=== PATIENT | female | born 1945 | race Caucasian/White ===

== ENCOUNTER → 2018-01-01 | Outpatient (CLI) | payer OTHER ==
[~2018-01-01] MED LIST: ASPI81 PO; ASPI81TA82 PO; ENAL5TAB98 PO; HYDR50TA5 PO; IBUP-238 PO; KLOR20TA6 PO; LEVA750T9 PO; OMEGA 3 PO; OXYC5 PO; SIMV10TA PO; TAB-TAB PO; TOLT1TAB17 PO; VESI5TAB PO; VITA100017 PO; ZIAC106.25 PO; ZYRT10TA12 PO; [UNRECOGNIZED DRUG - OTHER]
--- NOTE | 2018-01-01 22:38 | EKG ---
Date Performed: 01/01/2018 Time Performed: 09:34:58 PTAGE: 72 years EKG: Sinus rhythm . Right axis deviation Septal and lateral ST-T changes are nonspecific Abnormal ECG Since the PREVIOUS TRACING , no significant change noted DOCTOR: Pawel Lima Interpretating Date/Time 01/01/2018 22:37:28
== END ==
LOC: HCAV 09:21
PROVIDERS: ATTEND Urology
DX: Z01.810 Encounter for preprocedural cardiovascular examination (principal)
CPT/HCPCS: 93005

== ENCOUNTER 2018-02-26 10:09 | Observation (INO) ==
[2018-02-26] MEDS: Sod Chloride 0.9% Inj 1,000 ML IV.CONT SCH (11:15)
[2018-02-26 11:31] LABS: Baso % (Auto) 0.5 % (0.0-2.0); Eos # (Auto) 0.3 th/mm3 (0.0-0.4); Eos % (Auto) 3.9 % (0.0-4.0); Hemoglobin 14.1 gm/dL (11.6-15.3); Lymph # (Auto) 1.2 th/mm3 (1.0-4.8); Lymph % (Auto) 17.7 % (9.0-44.0); Mean Corpuscular HGB Conc 33.5 % (32.0-36.0); Mean Corpuscular Hemoglobin 30.7 pg (27.0-34.0); Mean Corpuscular Volume 91.5 fL (80.0-100.0); Mean Platelet Volume 8.2 fL (7.0-11.0); Mono # (Auto) 0.5 th/mm3 (0.0-0.9); Mono % (Auto) 6.4 % (0.0-8.0); Neut % (Auto) 71.5 % (16.0-70.0); Platelet Count 162 th/mm3 (150-450); Red Blood Count 4.59 mil/mm3 (4.00-5.30); Red Cell Distribution Width 14.5 % (11.6-17.2)
[2018-02-26 11:43] LABS: Alanine Aminotransferase 35 U/L (10-53); Albumin 3.9 g/dL (3.4-5.0); Anion Gap 9 meq/L (5-15); Aspartate Aminotransferase 26 U/L (15-37); Blood Urea Nitrogen 25 mg/dL (7-18); Calcium 9.8 mg/dL (8.5-10.1); Carbon Dioxide 27.9 meq/L (21.0-32.0); Chloride 103 meq/L (98-107); Glomerular Filtration Rate 61 mL/min (>89); Glucose,Random 103 mg/dL (74-106); Potassium 3.6 meq/L (3.5-5.1); Sodium 140 meq/L (136-145)
[2018-02-26 11:46] LABS: Alkaline Phosphatase 74 U/L (45-117); Total Protein 7.9 g/dL (6.4-8.2)
[2018-02-26 11:51] LABS: Activated Partial Thrombo Time 26.7 sec (24.3-30.1); INR 1.1 Ratio; Prothrombin Time 11.2 sec (9.8-11.6)
--- NOTE | 2018-02-26 12:11 | ED ---
HPI General Chief complaint: GI Bleed Stated complaint: Poss Blood in stool Time Seen by Provider: 02/26/18 11:04 History of Present Illness HPI Narrative: This is a 73-year-old female with no significant past medical history, presents today with complaints of blood in her stool 2 days. Patient reports that it started as a pink frothy stool 2 days ago. She states over the last 48 hours it has progressed to a black tarry consistency. She denies any history of previous GI bleeds. She denies any history of fevers or chills. She does report that she does take ibuprofen occasionally for back pain but does not take any other blood thinners. She reports abdominal pain in her lower abdominal area. She denies any other history. MD complaint: melena Onset (ago): day(s) Pain Consistency: colicky Severity: moderate Relieving factors: none Exacerbating factors: bowel movement Treatments Prior to Arrival: none Related Data Home Medications Medication Instructions Recorded Confirmed alendronate 70 mg PO QWEEK 02/26/18 02/26/18 amlodipine 5 mg PO DAILY 02/26/18 02/26/18 ascorbic acid (vitamin C) [Vitamin 60 mg PO DAILY 02/26/18 02/26/18 C] aspirin 81 mg PO DAILY 02/26/18 02/26/18 atorvastatin 20 mg PO DAILY 02/26/18 02/26/18 cholecalciferol (vitamin D3) 5,000 unit PO DAILY 02/26/18 02/26/18 [Vitamin D3] losartan-hydrochlorothiazide 1 tab PO DAILY 02/26/18 02/26/18 potassium chloride 20 meq PO DAILY 02/26/18 02/26/18 Allergies Allergy/AdvReac Type Severity Reaction Status Date / Time acetaminophen Allergy Severe NAUSEA Verified 02/26/18 10:28 VOMITING Review of Systems ROS: all other systems reviewed are negative Constitutional Denies chills and Denies fever(s) Eyes Reports system reviewed and no additional complaints, except as docu ENT Reports system reviewed and no additional complaints, except as docu Cardiovascular Denies chest pain and Denies palpitations Respiratory Denies hemoptysis and Denies dyspnea Gastrointestinal Reports melena, Denies hematemesis and Reports other (Greater than 20 bowel movements in the last 48 hours) Genitourinary Denies urinary frequency and Denies dysuria Musculoskeletal Reports back pain (Chronic) Integumentary/Breasts Reports system reviewed and no additional complaints, except as docu Neurologic Denies system reviewed and no additional complaints, except as docu Hematologic/Lymphatic Denies easy bleeding and Denies easy bruising PMF Medical History Medical History Hypercholesterolemia (Acute) Hypertension (Acute) Surgical History Surgical History History of appendectomy (Acute) Family History Family History Mother Family history of cancer Social History Social History Substance History: No History of Abuse Smoking Status: Never smoker How Often Do You Have a Drink Containing Alcohol: 2 to 4 times a month Recent Travel in [facility] within the Last 8 Weeks: No Recent Out of Country Travel within the Last 8 Weeks: No Immunization History Tetanus Immunization: Unsure Hx Influenza Vaccine This Season: Yes Exam Narrative Exam Narrative: GENERAL: Well-developed well-nourished female in no acute respiratory distress. SKIN: Focused skin assessment warm/dry. HEAD: Atraumatic. Normocephalic. EYES: No scleral icterus. No injection or drainage. ENT: No nasal bleeding or discharge. Mucous membranes pink and moist. NECK: Trachea midline. Supple. CARDIOVASCULAR: Regular rate and rhythm. No murmur appreciated. RESPIRATORY: No accessory muscle use. Clear to auscultation. Breath sounds equal bilaterally. GASTROINTESTINAL: Abdomen soft, non-tender, nondistended. Hepatic and splenic margins not palpable. MUSCULOSKELETAL: No obvious deformities. No clubbing. No cyanosis. No edema. RECTAL EXAM: Performed by first year buyer intern Dr. Escobar. No masses or tenderness , stool is maroon. Heme positive. NEUROLOGICAL: Awake and alert. No obvious cranial nerve deficits. Motor grossly within normal limits. Normal speech. Course Initial Documented Vital Signs Temperature 98.2 F 02/26/18 10:13 Pulse Rate 85 02/26/18 10:13 Respiratory Rate 16 02/26/18 10:13 Blood Pressure 121/64 02/26/18 10:13 Pulse Oximetry 96 02/26/18 10:13 Last Documented Vital Signs Temperature 97.7 F 02/26/18 13:00 Pulse Rate 65 02/26/18 13:00 Respiratory Rate 17 02/26/18 13:00 Blood Pressure 98/61 L 02/26/18 13:00 Pulse Oximetry 99 02/26/18 13:00 Medical Decision Making MDM Narrative Medical decision making narrative: This is a 73-year-old female presents today with complaints of gastrointestinal bleeding 2 days. Patient states it started out as a frothy pink coloration. They state over the last 48 hours it has become black and tarry. On exam here it was maroon colored and heme positive. Patient's H&H is stable at this time. She will be admitted under observation with a GI consult. [facility] who is agreed [facility] the observation admission. Medical Screen Exam Complete: Yes Emergency Medical Condition: Yes Differential Diagnosis Differential Diagnosis: Upper GI bleed versus lower GI bleed versus colitis Lab Data Result diagrams: 02/26/18 11:14 02/26/18 11:14 Lab Results 02/26/18 02/26/18 02/26/18 Range/Units 11:14 11:14 11:14 WBC 7.0 (4.0-11.0) th/mm3 RBC 4.59 (4.00-5.30) mil/mm3 Hgb 14.1 (11.6-15.3) gm/dL Hct 42.0 (35.0-46.0) % MCV 91.5 (80.0-100.0) fL MCH 30.7 (27.0-34.0) pg MCHC 33.5 (32.0-36.0) % RDW 14.5 (11.6-17.2) % Plt Count 162 (150-450) th/mm3 MPV 8.2 (7.0-11.0) fL Neut % (Auto) 71.5 H (16.0-70.0) % Lymph % (Auto) 17.7 (9.0-44.0) % [place] % (Auto) 6.4 (0.0-8.0) % Eos % (Auto) 3.9 (0.0-4.0) % Baso % (Auto) 0.5 (0.0-2.0) % Neut # (Auto) 5.0 (1.8-7.7) th/mm3 Lymph # (Auto) 1.2 (1.0-4.8) th/mm3 [place] # (Auto) 0.5 (0.0-0.9) th/mm3 Eos # (Auto) 0.3 (0.0-0.4) th/mm3 Baso # (Auto) 0.0 (0.0-0.2) th/mm3 WBC Differential . Differential Comment Auto diff final PT 11.2 (9.8-11.6) sec INR 1.1 Ratio APTT 26.7 (24.3-30.1) sec Sodium 140 (136-145) meq/L Potassium 3.6 (3.5-5.1) meq/L Chloride 103 (98-107) meq/L Carbon Dioxide 27.9 (21.0-32.0) meq/L Anion Gap 9 (5-15) meq/L BUN 25 H (7-18) mg/dL Creatinine 0.90 (0.50-1.00) mg/dL Estimated GFR 61 L (>89) mL/min Random Glucose 103 (74-106) mg/dL Calcium 9.8 (8.5-10.1) mg/dL Total Bilirubin 1.0 (0.2-1.0) mg/dL AST 26 (15-37) U/L ALT 35 (10-53) U/L Alkaline Phosphatase 74 (45-117) U/L Total Protein 7.9 (6.4-8.2) g/dL Albumin 3.9 (3.4-5.0) g/dL Blood Type Blood Type Recheck Antibody Screen 02/26/18 Range/Units 11:14 WBC (4.0-11.0) th/mm3 RBC (4.00-5.30) mil/mm3 Hgb (11.6-15.3) gm/dL Hct (35.0-46.0) % MCV (80.0-100.0) fL MCH (27.0-34.0) pg MCHC (32.0-36.0) % RDW (11.6-17.2) % Plt Count (150-450) th/mm3 MPV (7.0-11.0) fL Neut % (Auto) (16.0-70.0) % Lymph % (Auto) (9.0-44.0) % [place] % (Auto) (0.0-8.0) % Eos % (Auto) (0.0-4.0) % Baso % (Auto) (0.0-2.0) % Neut # (Auto) (1.8-7.7) th/mm3 Lymph # (Auto) (1.0-4.8) th/mm3 [place] # (Auto) (0.0-0.9) th/mm3 Eos # (Auto) (0.0-0.4) th/mm3 Baso # (Auto) (0.0-0.2) th/mm3 WBC Differential Differential Comment PT (9.8-11.6) sec INR Ratio APTT (24.3-30.1) sec Sodium (136-145) meq/L Potassium (3.5-5.1) meq/L Chloride (98-107) meq/L Carbon Dioxide (21.0-32.0) meq/L Anion Gap (5-15) meq/L BUN (7-18) mg/dL Creatinine (0.50-1.00) mg/dL Estimated GFR (>89) mL/min Random Glucose (74-106) mg/dL Calcium (8.5-10.1) mg/dL Total Bilirubin (0.2-1.0) mg/dL AST (15-37) U/L ALT (10-53) U/L Alkaline Phosphatase (45-117) U/L Total Protein (6.4-8.2) g/dL Albumin (3.4-5.0) g/dL Blood Type O Positive Blood Type Recheck Not needed Antibody Screen Negative Discharge Plan Discharge Disposition Patient Disposition: 30 Still Patient Discharge Details Diagnosis: GI bleed Physicians Team ED Provider: Hema Chandler Primary Care Provider: UNKNOWN, Attending Provider: Emilia Vogel Other Providers: Melchor Echevarria Rxs /Orders / Referrals /Forms Prescriptions: No Action potassium chloride 10 mEq Capsule, Extended Release 20 meq PO DAILY RF: 0 atorvastatin 20 mg Tablet 20 mg PO DAILY RF: 0 ascorbic acid (vitamin C) [Vitamin C] 60 mg Lozenge 60 mg PO DAILY RF: 0 alendronate 70 mg Tablet 70 mg PO QWEEK RF: 0 amlodipine 5 mg Tablet 5 mg PO DAILY RF: 0 losartan-hydrochlorothiazide 100-25 mg Tablet 1 tab PO DAILY RF: 0 aspirin 81 mg Tablet,Chewable 81 mg PO DAILY RF: 0 cholecalciferol (vitamin D3) [Vitamin D3] 5,000 unit Tablet 5,000 unit PO DAILY RF: 0 Discharge Interventions Interventions: Vital Signs Last Done: 02/26/18 12:20 Status ED Status: With Doctor
--- NOTE | 2018-02-26 12:44 | P.HPIM ---
History of Present Illness Primary Care Physician: Ken Tovar Chief Complaint: rectal bleed History of Present Illness: patient is a 73 y/o female with history of hypertension and dyslipidemia, borderline diabetes, who presented to ER with rectal bleed. she says that she was at her usual state of health till yesterday when she started to have rectal bleed. she says that initially it was ' pinkish stool' however last night it ' turned black'. she reports mild lower abdominal pain last night which has resolved. she had some nausea as well. she doesn't report any fever but she was feeling cold. she denies any recent antibiotic use but she says that at times she takes advil for her back pain. she says that the last colonoscopy that she had was two-three years ago during which she had polypectomy. Review of Systems All other systems reviewed negative except as stated in HPI PMFSH - History History Provided By: Patient, Family Member - Medical History Medical History: Medical History (Last Updated 02/26/18 @ 10:28 by Samina Pruett) Hypercholesterolemia Hypertension - Surgical History Surgical History: Surgical History (Last Updated 02/26/18 @ 10:29 by Samina Pruett) History of appendectomy - Family History Family History: Family History (Last Updated 02/26/18 @ 12:41 by Emilia Vogel MD) Mother Family history of cancer - Tobacco History Smoking Status: Never smoker - Alcohol History How Often Do You Have a Drink Containing Alcohol: 2 to 4 times a month - Substance Use History Substance History: No History of Abuse - Travel History Recent Travel in the [place] Within the Last 8 Weeks: No Recent Travel Out of the Country Within the Last 8 Weeks: No - Immunization History Tetanus Immunization: Unsure Hx Influenza Vaccine This Season: Yes Medications and Allergies Active Medications: Active Medications Sodium Chloride (Ns Inj) 1,000 mls @ 100 mls/hr IV.CONT .Q10H ABRIL Last Admin: 02/26/18 11:15 Dose: 125 mls/hr Sodium Chloride (Ns Flush) 2 ml IV.FLUSH PRN PRN PRN Reason: FLUSH AFTER USING IV ACCESS Allergies Allergy/AdvReac Type Severity Reaction Status Date / Time acetaminophen Allergy Severe NAUSEA Verified 02/26/18 10:28 VOMITING Home Medications Medication Instructions Recorded Confirmed Type alendronate 70 mg PO QWEEK 02/26/18 02/26/18 History amlodipine 5 mg PO DAILY 02/26/18 02/26/18 History ascorbic acid (vitamin C) [Vitamin 60 mg PO DAILY 02/26/18 02/26/18 History C] aspirin 81 mg PO DAILY 02/26/18 02/26/18 History atorvastatin 20 mg PO DAILY 02/26/18 02/26/18 History cholecalciferol (vitamin D3) 5,000 unit PO DAILY 02/26/18 02/26/18 History [Vitamin D3] losartan-hydrochlorothiazide 1 tab PO DAILY 02/26/18 02/26/18 History potassium chloride 20 meq PO DAILY 02/26/18 02/26/18 History Exam Vital signs: Vital Signs 02/26/18 10:13 02/26/18 11:04 02/26/18 11:39 Temperature 98.2 F Pulse Rate 85 69 Respiratory Rate 16 Blood Pressure 121/64 Pulse Oximetry 96 98 96 02/26/18 12:20 Temperature 97.8 F Pulse Rate 76 Respiratory Rate 18 Blood Pressure 90/61 L Pulse Oximetry 99 Intake & Output 02/25/18 02/26/18 02/26/18 18:59 06:59 18:59 Weight 59.874 kg - Constitutional no acute distress - Routine HEENT Exam Eye: Present: PERRL - Routine Respiratory Exam Present: CTA bilaterally - Routine Cardiovascular Exam Present: RRR - Routine Abdominal Exam Present: soft - Routine Extremities Exam Comments: no pedal edema. - Routine Neurological Exam Present: alert, oriented X3 Results - Labs CBC & Chem 7: 02/26/18 11:14 02/26/18 11:14 Labs: Short CBC 02/26/18 Range/Units 11:14 WBC 7.0 (4.0-11.0) th/mm3 Hgb 14.1 (11.6-15.3) gm/dL Hct 42.0 (35.0-46.0) % Plt Count 162 (150-450) th/mm3 BMP 02/26/18 11:14 Sodium 140 Potassium 3.6 Chloride 103 Carbon Dioxide 27.9 BUN 25 H Creatinine 0.90 Calcium 9.8 Liver Function 02/26/18 Range/Units 11:14 Total Bilirubin 1.0 (0.2-1.0) mg/dL AST 26 (15-37) U/L ALT 35 (10-53) U/L Alkaline Phosphatase 74 (45-117) U/L Albumin 3.9 (3.4-5.0) g/dL Caprini VTE Risk Assessment Caprini VTE Risk Assessment: Moderate/High Risk (score >= 2) VTE Pharmacological Exception Reason: Active bleeding Caprini Risk Assessment Model: Point Value = 1 Point Value = 2 Point Value = 3 Point Value = 5 Age 41-60 Minor surgery BMI > 25 kg/m2 Swollen legs Varicose veins or History of unexplained or recurrent spontaneous Oral contraceptives or hormone replacement Sepsis (< 1 month) Serious lung disease, including pneumonia (< 1 month) Abnormal pulmonary function Acute myocardial infarction Congestive heart failure (< 1 month) History of inflammatory bowel disease Medical patient at bed rest Age 61-74 Arthroscopic surgery Major open surgery (> 45 min) Laparoscopic surgery (> 45 min) Malignancy Confined to bed (> 72 hours) Immobilizing plaster cast Central venous access Age >= 75 History of VTE Family history of VTE Factor V Leiden Prothrombin [id number] Lupus anticoagulant Anticardiolipin antibodies Elevated serum homocysteine Heparin-induced thrombocytopenia Other congenital or acquired thrombophilia Stroke (< 1 month) Elective arthroplasty Hip, pelvis, or leg fracture Acute spinal cord injury (< 1 month) Prophylaxis Regimen: Total Risk Factor Score Risk Level Prophylaxis Regimen 0-1 Low Early ambulation 2 Moderate Order ONE of the following: *Sequential Compression Device (SCD) *Heparin 5000 units SQ BID 3-4 Higher Order ONE of the following medications: *Heparin 5000 units SQ TID *Enoxaparin/Lovenox 40 mg SQ daily (WT < 150 kg, CrCl > 30 mL/min) *Enoxaparin/Lovenox 30 mg SQ daily (WT < 150 kg, CrCl > 10-29 mL/min) *Enoxaparin/Lovenox 30 mg SQ BID (WT < 150 kg, CrCl > 30 mL/min) AND/OR *Sequential Compression Device (SCD) 5 or more Highest Order ONE of the following medications: *Heparin 5000 units SQ TID (Preferred with Epidurals) *Enoxaparin/Lovenox 40 mg SQ daily (WT < 150 kg, CrCl > 30 mL/min) *Enoxaparin/Lovenox 30 mg SQ daily (WT < 150 kg, CrCl > 10-29 mL/min) *Enoxaparin/Lovenox 30 mg SQ BID (WT < 150 kg, CrCl > 30 mL/min) AND *Sequential Compression Device (SCD) Assessment and Plan - Plan A/P - rectal bleed H/H stable- will keep NPO and start on IV fluid- monitor H/H and consult GI. -hypertension; BP on low-side; will hold home BP meds for now and continue to monitor the BP. -dyslipidemia; resume statin upon discharge. -DVT prophylaxis with SCD's-no chemical prophylaxis due to rectal bleed. Discussed Condition With: ER physician, the patient.
--- NOTE | 2018-02-26 14:29 | CT ---
EXAM DATE: 02/26/2018 1:31 PM EDT AGE/SEX: 73 years / Female INDICATIONS: Diffuse abdomen pain and bloody stool for two days. CLINICAL DATA: This is the patient's initial encounter. Patient reports that signs and symptoms have been present for 2 days and indicates a pain score of 7/10. MEDICAL/SURGICAL HISTORY: Hypertension. Appendectomy. ORAL CONTRAST: No oral contrast ingested. RADIATION DOSE: 5.29 CTDI (mGy) COMPARISON: [facility] [place] [facility] [place] & PELVIS W CONTRAST, 09/12/2014. . TECHNIQUE: Multiple contiguous axial images were obtained through the abdomen and pelvis following b olus infusion of 70 ml Omnipaque 350 (iohexol) nonionic water-soluble contrast as a single exam dos e. No oral contrast ingested. Using automated exposure control and adjustment of the mA and/or kV ac cording to patient size, radiation dose was kept as low as reasonably achievable to obtain optimal di agnostic quality images. DICOM format image data is available electronically for review and comparis on. FINDINGS: LOWER LUNGS: Mild stable elevation of the right hemidiaphragm. LIVER: Redemonstration of multiple hepatic cysts with a dominant 8 cm cyst in segment 2 of the liver . No intrapelvic ductal dilatation. Gallbladder is mildly distended and contains several calcified ga llstones near the neck. SPLEEN: Homogeneous density without enlargement. PANCREAS: Unremarkable without mass or calcification. KIDNEYS: Kidneys demonstrate symmetrical enhancement without evidence for radiopaque renal calculi o r hydronephrosis. Subcentimeter hypodense cystic lesion in the mid left kidney stable from prior exam and likely benign in etiology given long-term stability. Subcentimeter hypodense lesion in the infer ior pole the right kidney is too small to fully characterize. ADRENAL GLANDS: Unremarkable. 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 The aorta co ntains small to moderate amount of eccentric mural thrombus at this level. Infrarenal aorta is nonane urysmal with diffuse arthroscopic calcifications. SMA and MELANIE are patent. Central SMV is patent. BOWEL/MESENTERY: Moderate sigmoid diverticulosis and scattered colonic diverticula. Circumferential colonic wall thickening and pericolonic stranding involving the majority of the descending colon. No pneumatosis or drainable fluid collection. The remainder of the colon is unremarkable. Small bowel lo ops are normal in appearance without evidence for obstruction. ABDOMINAL WALL: Intact. RETROPERITONEUM: No evidence of adenopathy in the retrocrural, para-aortic, or deep pelvic regions. BLADDER: Contours are smooth. REPRODUCTIVE: No abnormal masses or calcifications seen. BONY STRUCTURES: Degenerative spondylosis of the lower lumbar spine. No focal lytic or blastic bony lesions. CONCLUSION: 1. Colitis limited to the descending colon with sparing of the sigmoid and transverse colon. There a re scattered colonic diverticula in the descending colon although the extent of abnormality is atypic al for diverticulitis. Differential considerations include inflammatory and infectious etiologies. Is chemic etiology is felt to be much less likely as the SMA, MELANIE and central SMV are patent. 2. 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 3. Stable additional ancillary findings, as above. Electronically signed by: Melecio Deutsch MD 02/26/2018 2:28 PM EDT
--- NOTE | 2018-02-26 15:42 | P.CONGI ---
History of Present Illness Consult date: 02/26/18 Consult reason: Rectal bleeding, dark stools Chief complaint: GI Bleed History of Present Illness: This is a slim 73-year-old female who came for evaluation to the emergency room on 02/26/2018 with rectal bleeding. Initially patient noted a pinkish color surrounding her stools which has turned to black stools worsened over the past 2 days. No obvious pain noted with the rectal bleeding. patient's also noted some lower abdominal pain and cramping over the past 2 days and has had some associated nausea. Patient does admit to taking Advil sometimes up to 3 times daily last dose was taken this past Monday but does note that she does not take it on a daily routine basis. Patient has had no history of EGD and no family history of colon cancer patient notes previous colonoscopy approximately 2-3 years ago with an history of polyps. Current hemoglobin 14.1 PT INR 1.1 bilirubin and LFTs are normal range patient also notes a history of constipation in which she uses an herbal tea for on a daily routine basis and states that that alleviates any symptoms of constipation. She currently denies any nausea, vomiting, dyspepsia or dysphasia. Patient's is at her bedside and does assist her with some of her history she is a fair to poor historian. CT scan performed shows colitis limited to the descending colon with sparing of the sigmoid and transverse colon. Scattered colonic diverticula descending colon atypical for diverticulitis. Differential considerations include and inflammatory versus infectious. gastroenterology has been consulted to assist her with her melena stools and lower abdominal pain and cramping as well as her plan of care. <Crystal Yoo - Last Filed: 02/26/18 15:22> Review of Systems All other systems reviewed negative except as stated in HPI <Crystal Yoo - Last Filed: 02/26/18 15:22> PMFSH - History History Provided By: Patient, Family Member - Medical History Medical History: Medical History (Last Updated 02/26/18 @ 10:28 by Samina Pruett) Hypercholesterolemia Hypertension - Surgical History Surgical History: Surgical History (Last Updated 02/26/18 @ 10:29 by Samina Pruett) History of appendectomy - Family History Family History: Family History (Last Updated 02/26/18 @ 12:41 by Emilia Vogel MD) Mother Family history of cancer - Tobacco History Smoking Status: Never smoker - Alcohol History How Often Do You Have a Drink Containing Alcohol: 2 to 4 times a month - Substance Use History Substance History: No History of Abuse - Travel History Recent Travel in the [place] Within the Last 8 Weeks: No Recent Travel Out of the Country Within the Last 8 Weeks: No - Immunization History Tetanus Immunization: Unsure Hx Influenza Vaccine This Season: Yes <Crystal Yoo - Last Filed: 02/26/18 15:22> - Medical History Medical History: Medical History (Last Updated 02/26/18 @ 10:28 by Samina Pruett) Hypercholesterolemia Hypertension - Surgical History Surgical History: Surgical History (Last Updated 02/26/18 @ 10:29 by Samina Pruett) History of appendectomy - Family History Family History: Family History (Last Updated 02/26/18 @ 12:41 by Emilia Vogel MD) Mother Family history of cancer <Melchor Echevarria - Last Filed: 02/26/18 16:24> Medications and Allergies Active Medications: Active Medications Bisacodyl (Dulcolax Ec) 20 mg PO ONCE ONE Stop: 02/26/18 16:01 Sodium Chloride (Ns Inj) 1,000 mls @ 100 mls/hr IV.CONT .Q10H ABRIL Last Admin: 02/26/18 11:15 Dose: 125 mls/hr Magnesium Citrate (Citroma Liq) 300 ml PO ONCE ONE Stop: 02/26/18 16:01 Magnesium Citrate (Citroma Liq) 300 ml PO ONCE ONE Stop: 02/26/18 18:01 Ondansetron HCl (Zofran Inj) 4 mg IV.PUSH Q8H PRN PRN Reason: nausea Sodium Chloride (Ns Flush) 2 ml IV.FLUSH PRN PRN PRN Reason: FLUSH AFTER USING IV ACCESS <Crystal Yoo - Last Filed: 02/26/18 15:22> Active Medications: Active Medications Sodium Chloride (Ns Inj) 1,000 mls @ 100 mls/hr IV.CONT .Q10H ABRIL Last Admin: 02/26/18 11:15 Dose: 125 mls/hr Metronidazole/Sodium Chloride (Flagyl 500 Mg Inj) 100 mls @ 100 mls/hr IV.SIG Q8H ABRIL Magnesium Citrate (Citroma Liq) 300 ml PO ONCE ONE Stop: 02/26/18 18:01 Ondansetron HCl (Zofran Inj) 4 mg IV.PUSH Q8H PRN PRN Reason: nausea Sodium Chloride (Ns Flush) 2 ml IV.FLUSH PRN PRN PRN Reason: FLUSH AFTER USING IV ACCESS <Melchor Echevarria - Last Filed: 02/26/18 16:24> Allergies Allergy/AdvReac Type Severity Reaction Status Date / Time acetaminophen Allergy Severe NAUSEA Verified 02/26/18 10:28 VOMITING Home Medications Medication Instructions Recorded Confirmed Type alendronate 70 mg PO QWEEK 02/26/18 02/26/18 History amlodipine 5 mg PO DAILY 02/26/18 02/26/18 History ascorbic acid (vitamin C) [Vitamin 60 mg PO DAILY 02/26/18 02/26/18 History C] aspirin 81 mg PO DAILY 02/26/18 02/26/18 History atorvastatin 20 mg PO DAILY 02/26/18 02/26/18 History cholecalciferol (vitamin D3) 5,000 unit PO DAILY 02/26/18 02/26/18 History [Vitamin D3] losartan-hydrochlorothiazide 1 tab PO DAILY 02/26/18 02/26/18 History potassium chloride 20 meq PO DAILY 02/26/18 02/26/18 History Exam Vital signs: Vital Signs 02/26/18 10:13 02/26/18 11:04 02/26/18 11:39 Temperature 98.2 F Pulse Rate 85 69 Respiratory Rate 16 Blood Pressure 121/64 Pulse Oximetry 96 98 96 02/26/18 12:20 02/26/18 13:00 02/26/18 14:50 Temperature 97.8 F 97.7 F 97.8 F Pulse Rate 76 65 70 Respiratory Rate 18 17 15 Blood Pressure 90/61 L 98/61 L 98/63 L Pulse Oximetry 99 99 99 Intake & Output 02/25/18 02/26/18 02/26/18 18:59 06:59 18:59 Weight 59.874 kg - Constitutional mild distress, thin - Routine HEENT Exam Head: Present: normocephalic ENT: Present: mucous membranes moist - Routine Neck Exam Present: supple - Routine Respiratory Exam Present: accessory muscle use (Even, unlabored) - Routine Abdominal Exam Present: soft (Flat, active bowel sounds in all 4 quadrants, no obvious abdominal pain except for some lower abdominal cramping off and on) - Routine Skin Exam Present: intact - Routine Neurological Exam Present: alert (Fair historian history assistance been given per the ) <[place],Crystal M - Last Filed: 02/26/18 15:22> Vital signs: Vital Signs 02/26/18 10:13 02/26/18 11:04 02/26/18 11:39 Temperature 98.2 F Pulse Rate 85 69 Respiratory Rate 16 Blood Pressure 121/64 Pulse Oximetry 96 98 96 02/26/18 12:20 02/26/18 13:00 02/26/18 14:50 Temperature 97.8 F 97.7 F 97.8 F Pulse Rate 76 65 70 Respiratory Rate 18 17 15 Blood Pressure 90/61 L 98/61 L 98/63 L Pulse Oximetry 99 99 99 Intake & Output 02/25/18 02/26/18 02/26/18 18:59 06:59 18:59 Weight 59.874 kg <Melchor Echevarria - Last Filed: 02/26/18 16:24> Results - Labs CBC & Chem 7: 02/26/18 11:14 02/26/18 11:14 Labs: Laboratory Results - last 24 hr 02/26/18 02/26/18 02/26/18 11:14 11:14 11:14 WBC 7.0 RBC 4.59 Hgb 14.1 Hct 42.0 MCV 91.5 MCH 30.7 MCHC 33.5 RDW 14.5 Plt Count 162 MPV 8.2 Neut % (Auto) 71.5 H Lymph % (Auto) 17.7 [place] % (Auto) 6.4 Eos % (Auto) 3.9 Baso % (Auto) 0.5 Neut # (Auto) 5.0 Lymph # (Auto) 1.2 [place] # (Auto) 0.5 Eos # (Auto) 0.3 Baso # (Auto) 0.0 WBC Differential . Differential Comment Auto diff final PT 11.2 INR 1.1 APTT 26.7 Sodium 140 Potassium 3.6 Chloride 103 Carbon Dioxide 27.9 Anion Gap 9 BUN 25 H Creatinine 0.90 Estimated GFR 61 L Random Glucose 103 Calcium 9.8 Total Bilirubin 1.0 AST 26 ALT 35 Alkaline Phosphatase 74 Total Protein 7.9 Albumin 3.9 Blood Type Blood Type Recheck Antibody Screen 02/26/18 11:14 WBC RBC Hgb Hct MCV MCH MCHC RDW Plt Count MPV Neut % (Auto) Lymph % (Auto) [place] % (Auto) Eos % (Auto) Baso % (Auto) Neut # (Auto) Lymph # (Auto) [place] # (Auto) Eos # (Auto) Baso # (Auto) WBC Differential Differential Comment PT INR APTT Sodium Potassium Chloride Carbon Dioxide Anion Gap BUN Creatinine Estimated GFR Random Glucose Calcium Total Bilirubin AST ALT Alkaline Phosphatase Total Protein Albumin Blood Type O Positive Blood Type Recheck Not needed Antibody Screen Negative - Imaging Impressions Abdomen/Pelvis CT 02/26/18 11:04 CONCLUSION: 1. Colitis limited to the descending colon with sparing of the sigmoid and transverse colon. There are scattered colonic diverticula in the descending colon although the extent of abnormality is atypical for diverticulitis. Differential considerations include inflammatory and infectious etiologies. Ischemic etiology is felt to be much less likely as the SMA, MELANIE and central SMV are patent. 2. 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 3. Stable additional ancillary findings, as above. <Crystal Yoo - Last Filed: 02/26/18 15:22> - Labs CBC & Chem 7: 02/26/18 11:14 02/26/18 11:14 Labs: Laboratory Results - last 24 hr 02/26/18 02/26/18 02/26/18 11:14 11:14 11:14 WBC 7.0 RBC 4.59 Hgb 14.1 Hct 42.0 MCV 91.5 MCH 30.7 MCHC 33.5 RDW 14.5 Plt Count 162 MPV 8.2 Neut % (Auto) 71.5 H Lymph % (Auto) 17.7 [place] % (Auto) 6.4 Eos % (Auto) 3.9 Baso % (Auto) 0.5 Neut # (Auto) 5.0 Lymph # (Auto) 1.2 [place] # (Auto) 0.5 Eos # (Auto) 0.3 Baso # (Auto) 0.0 WBC Differential . Differential Comment Auto diff final PT 11.2 INR 1.1 APTT 26.7 Sodium 140 Potassium 3.6 Chloride 103 Carbon Dioxide 27.9 Anion Gap 9 BUN 25 H Creatinine 0.90 Estimated GFR 61 L Random Glucose 103 Calcium 9.8 Total Bilirubin 1.0 AST 26 ALT 35 Alkaline Phosphatase 74 Total Protein 7.9 Albumin 3.9 Blood Type Blood Type Recheck Antibody Screen 02/26/18 11:14 WBC RBC Hgb Hct MCV MCH MCHC RDW Plt Count MPV Neut % (Auto) Lymph % (Auto) [place] % (Auto) Eos % (Auto) Baso % (Auto) Neut # (Auto) Lymph # (Auto) [place] # (Auto) Eos # (Auto) Baso # (Auto) WBC Differential Differential Comment PT INR APTT Sodium Potassium Chloride Carbon Dioxide Anion Gap BUN Creatinine Estimated GFR Random Glucose Calcium Total Bilirubin AST ALT Alkaline Phosphatase Total Protein Albumin Blood Type O Positive Blood Type Recheck Not needed Antibody Screen Negative - Imaging Impressions Abdomen/Pelvis CT 02/26/18 11:04 CONCLUSION: 1. Colitis limited to the descending colon with sparing of the sigmoid and transverse colon. There are scattered colonic diverticula in the descending colon although the extent of abnormality is atypical for diverticulitis. Differential considerations include inflammatory and infectious etiologies. Ischemic etiology is felt to be much less likely as the SMA, MELANIE and central SMV are patent. 2. 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 3. Stable additional ancillary findings, as above. <Melchor Echevarria E - Last Filed: 02/26/18 16:24> Assessment and Plan (1) Melena Status: Acute Code(s): K92.1 - Melena (2) GI bleed Status: Acute Code(s): K92.2 - Gastrointestinal hemorrhage, unspecified (3) Colitis Status: Acute Code(s): K52.9 - Noninfective gastroenteritis and colitis, unspecified - Plan 73-year-old slim female comes to the hospital on 02/26/2018 with symptoms of rectal bleeding initially pinkish tinged stools which have turned into dark black melena stools. Onset of symptoms approximately 2 days with some mid to lower abdominal pain and cramping. Also notes some nausea and admits to taking Advil on an occasional basis sometimes 3 times a day last dose taken was 3 days ago. Patient also notes history of polyps and colonoscopy 3 years ago. No previous EGD for comparison Patient notes left lower quadrant discomfort, no alleviating factors aggregating factors could be her Advil. Patient notes history of constipation but drinks diet herbal tea on a daily basis and states T is effective to control her constipation. Patient denies any nausea vomiting dyspepsia or dysphasia Colitis in the descending colon infectious versus inflammation, diverticula noted but no diverticulitis per CT scan. Will consider No family history of colon cancer current labs show hemoglobin 14.1, PT/INR 1.1 , bilirubin and LFTs normal. Plan Consent for EGD today makes N.p.o. Antiemetics IV fluids Monitor labs with special attention to hemoglobin Flagyl IV Further recommendations to follow Patient was seen per myself and Dr. Echevarria, note was written on his behalf <Crystal Yoo - Last Filed: 02/26/18 15:22> (1) Melena Status: Acute Code(s): K92.1 - Melena (2) GI bleed Status: Acute Code(s): K92.2 - Gastrointestinal hemorrhage, unspecified (3) Colitis Status: Acute Code(s): K52.9 - Noninfective gastroenteritis and colitis, unspecified - Attending Attestation Patient seen and examined Agree with above Continue with current supportive care Monitor labs and transfuse if needed Plan on EGD today if negative will pursue a colonoscopy tomorrow <Melchor Echevarria E - Last Filed: 02/26/18 16:24> <Crystal Yoo - Last Filed: 02/26/18 15:22> (2) GI bleed Qualifiers: GI bleed type/associated pathology: melena Qualified Code(s): K92.1 - Melena <Melchor Echevarria E - Last Filed: 02/26/18 16:24> (2) GI bleed Qualifiers: GI bleed type/associated pathology: melena Qualified Code(s): K92.1 - Melena
[2018-02-26] MEDS ORDERED: Magnesium Citrate Liq 300 ML Bottle PO ONE ×2 (16:00→18:00)
--- NOTE | 2018-02-26 16:35 | P.PCN ---
Date of procedure: 02/26/18 Pre-op diagnosis: GI bleed, melena Procedure: PROCEDURE PERFORMED EGD with biopsy INDICATION FOR PROCEDURE GI bleed, anemia PROCEDURE: The procedure, risks and benefits were discussed with Patient/POA and informed consent was obtained. Anesthesia sedated Patient with Diprivan. Patient was placed in the left lateral decubitus position. EGD: The Pentax videoscope was introduced through the oropharynx and advanced to the second portion of the duodenum under direct visualization. Retroflexion was performed in the stomach. FINDINGS: The esophagus this was unremarkable and within normal limits The stomach there was patchy and punctate erythema in the antrum but no ulcerations no erosions no blood or bleeding the rest of the stomach unremarkable antral biopsies were taken for further evaluation The duodenum there was patchy erythema in the duodenal bulb of unclear significance no blood or bleeding was seen in the duodenum biopsies from the bulb were taken for further evaluation the rest of the duodenum unremarkable ESTIMATED BLOOD LOSS: None SPECIMENS REMOVED: Gastric and duodenal biopsies COMPLICATIONS: None IMPRESSION: Gastritis Duodenitis PLAN: Await biopsies Continue with current supportive care Monitor labs and transfuse if needed Plan for a colonoscopy tomorrow Anesthesia: MAC Surgeon: Melchor Echevarria Condition: stable Disposition: floor
[2018-02-27] MEDS: Sod Chloride 0.9% Inj 1,000 ML IV.CONT SCH ×3 (01:29→18:46)
[2018-02-27] MEDS ORDERED: Magnesium Citrate Liq 300 ML Bottle PO ONE (06:00)
[2018-02-27 07:46] LABS: Alanine Aminotransferase 33 U/L (10-53); Albumin 3.2 g/dL (3.4-5.0); Alkaline Phosphatase 63 U/L (45-117); Anion Gap 9 meq/L (5-15); Aspartate Aminotransferase 22 U/L (15-37); Blood Urea Nitrogen 22 mg/dL (7-18); Calcium 8.5 mg/dL (8.5-10.1); Carbon Dioxide 24.1 meq/L (21.0-32.0); Chloride 112 meq/L (98-107); Glomerular Filtration Rate 72 mL/min (>89); Glucose,Random 97 mg/dL (74-106); Potassium 3.1 meq/L (3.5-5.1); Sodium 145 meq/L (136-145); Total Protein 6.7 g/dL (6.4-8.2)
--- NOTE | 2018-02-27 08:55 | P.PN ---
Subjective Interval history: Follow-up for rectal bleeding. Patient reports multiple BMs overnight status post bowel prep, no noticeable bleeding. She reports feeling "gassy", but no abdominal pain or nausea/vomiting. Denies fevers or chills. Denies any lightheadedness, dizziness, headache, chest pain, shortness breath. Going for colonoscopy today. Physical Exam Vital signs: Vital Signs 02/26/18 10:13 02/26/18 11:04 02/26/18 11:39 Temperature 98.2 F Pulse Rate 85 69 Respiratory Rate 16 Blood Pressure 121/64 Pulse Oximetry 96 98 96 02/26/18 12:20 02/26/18 13:00 02/26/18 14:50 Temperature 97.8 F 97.7 F 97.8 F Pulse Rate 76 65 70 Respiratory Rate 18 17 15 Blood Pressure 90/61 L 98/61 L 98/63 L Pulse Oximetry 99 99 99 02/26/18 16:00 02/26/18 16:29 02/26/18 20:00 Temperature 98.7 F 97.7 F 97.8 F Pulse Rate 78 90 Respiratory Rate 16 18 18 Blood Pressure 101/59 L 102/55 L 112/71 Pulse Oximetry 94 L 98 92 L 02/27/18 00:00 Temperature 97.8 F Pulse Rate 82 Respiratory Rate 18 Blood Pressure 98/58 L Pulse Oximetry 93 L Intake & Output 02/26/18 02/27/18 02/27/18 18:59 06:59 18:59 Intake Total 200 / 200 1100 / 1100 100 / 100 Balance 200 / 200 1100 / 1100 100 / 100 Weight 59.421 kg Intake: IV 1100 / 1100 100 / 100 NS Inj 1,000 ML @ 100 mls/hr IV 1000 / 1000 .CONT .Q10H ABRIL Rx#:[id number] Flagyl 500 MG Inj 100 ML @ 100 100 / 100 100 / 100 mls/hr IV.SIG Q8H ABRIL Rx#: [id number] Anesthesia Amount 200 / 200 Other: # Voids 1 Date of Last Bowel Movement 02/26/18 Weight On Admission 59.421 kg Narrative: GENERAL: Well-nourished, well-developed pleasant female patient in [facility]. SKIN: Warm and dry. No rash. HEENT: Normocephalic. Atraumatic. Pupils equal and round. Mucous membranes pink and moist. CARDIOVASCULAR: Regular rate and rhythm. No murmur appreciated. RESPIRATORY: No accessory muscle use. Clear to auscultation. Breath sounds equal bilaterally. GASTROINTESTINAL: Abdomen soft, non-tender, nondistended. Normoactive bowel sounds x4. MUSCULOSKELETAL: No obvious deformities. Extremities without clubbing, cyanosis , or edema. NEUROLOGICAL: Awake and alert. No obvious cranial nerve deficits. Motor grossly within normal limits. Moving all extremities spontaneously. Normal speech. PSYCHIATRIC: Appropriate mood and affect; insight and judgment normal. Results - Labs CBC & Chem 7: 02/27/18 06:00 02/27/18 06:00 Laboratory Results - last 24 hr 02/26/18 02/26/18 02/26/18 11:14 11:14 11:14 WBC 7.0 RBC 4.59 Hgb 14.1 Hct 42.0 MCV 91.5 MCH 30.7 MCHC 33.5 RDW 14.5 Plt Count 162 MPV 8.2 Neut % (Auto) 71.5 H Lymph % (Auto) 17.7 [place] % (Auto) 6.4 Eos % (Auto) 3.9 Baso % (Auto) 0.5 Neut # (Auto) 5.0 Lymph # (Auto) 1.2 [place] # (Auto) 0.5 Eos # (Auto) 0.3 Baso # (Auto) 0.0 WBC Differential . Differential Comment Auto diff final PT 11.2 INR 1.1 APTT 26.7 Sodium 140 Potassium 3.6 Chloride 103 Carbon Dioxide 27.9 Anion Gap 9 BUN 25 H Creatinine 0.90 Estimated GFR 61 L Random Glucose 103 Calcium 9.8 Total Bilirubin 1.0 AST 26 ALT 35 Alkaline Phosphatase 74 Total Protein 7.9 Albumin 3.9 Blood Type Blood Type Recheck Antibody Screen 02/26/18 02/27/18 02/27/18 11:14 06:00 06:00 WBC RBC Hgb 12.4 Hct MCV MCH MCHC RDW Plt Count MPV Neut % (Auto) Lymph % (Auto) [place] % (Auto) Eos % (Auto) Baso % (Auto) Neut # (Auto) Lymph # (Auto) [place] # (Auto) Eos # (Auto) Baso # (Auto) WBC Differential Differential Comment PT INR APTT Sodium 145 Potassium 3.1 L Chloride 112 H D Carbon Dioxide 24.1 Anion Gap 9 BUN 22 H Creatinine 0.78 Estimated GFR 72 L Random Glucose 97 Calcium 8.5 D Total Bilirubin 0.7 AST 22 ALT 33 Alkaline Phosphatase 63 Total Protein 6.7 D Albumin 3.2 L D Blood Type O Positive Blood Type Recheck Not needed Antibody Screen Negative - Imaging Impressions Abdomen/Pelvis CT 02/26/18 11:04 CONCLUSION: 1. Colitis limited to the descending colon with sparing of the sigmoid and transverse colon. There are scattered colonic diverticula in the descending colon although the extent of abnormality is atypical for diverticulitis. Differential considerations include inflammatory and infectious etiologies. Ischemic etiology is felt to be much less likely as the SMA, MELANIE and central SMV are patent. 2. 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 3. Stable additional ancillary findings, as above. - Procedures 02/26/18EGD showed gastritis and duodenitis Assessment and Plan - Plan 73-year-old female with history of hypertension, hyperlipidemia, borderline diabetes, presents with 1 day history of rectal bleeding GI bleed: Acute -Hemoglobin stable at 14.1, continue monitor H&H -GI consulted -CT abd/pelvis showed colitis limited to the descending colon with scattered diverticula atypical for diverticulitis; differential includes inflammatory versus infectious etiologies; ischemic less likely with patent SMA/MELANIE/SMV -Started on antibiotics with IV Flagyl per GI -EGD 02/26/18 showed gastritis/duodenitis, no active bleeding -Plan for colonoscopy today -Hemoglobin remained stable today at 12.4 Hypertension/hyperlipidemia: Chronic -BP borderline low, held home antihypertensives -Resume statin -Monitor BP, adjust antihypertensives as needed Hypokalemia: Potassium 3.1, suspect secondary to decreased oral intake and GI losses after bowel prep -Give KCl replacement DVT prophylaxis: SCDs; avoid chemical prophylaxis due to GI bleed Discharge Planning: Discharge pending colonoscopy, further clinical improvement, and clearance from GI.
[2018-02-27] MEDS ORDERED: Lidocaine PF 1% Inj 5 ML Syringe INFILTRATN ONE (12:00)
--- NOTE | 2018-02-27 16:51 | P.PCN ---
Date of procedure: 02/27/18 Pre-op diagnosis: GI bleed Procedure: PROCEDURE PERFORMED Colonoscopy with snare polypectomy and biopsy INDICATION FOR PROCEDURE GI bleed, abnormal findings on CT PROCEDURE: The procedure, risks and benefits were discussed with Patient/POA and informed consent was obtained. Anesthesia sedated Patient with Diprivan. Patient was placed in the left lateral decubitus position. Colonoscopy: The Pentax videoscope was introduced through the rectum and advanced to cecum where the ileocecal valve and appendiceal orifice were identified. Retroflexion was performed in the rectum. Colonic prep was good FINDINGS: Colonic withdrawal time greater than 6 minutes. As the scope was slowly withdrawn colonic mucosa was carefully inspected patient was noted to have a medium sized sessile polyp in the proximal transverse colon this was removed using cold snare technique and this was retrieved further evaluation the patient was noted to have a large area of erythema in the descending colon of unclear significance no erosions no ulcerations no edema this may be a normal variable but biopsies were taken for further evaluation otherwise the colonoscopy was unremarkable except for mild to moderate scattered diverticulosis retroflexion in the rectum was unremarkable so his rectal examination ESTIMATED BLOOD LOSS: None SPECIMENS REMOVED: Colon biopsy COMPLICATIONS: None IMPRESSION: Colon polyp Abnormal colonic mucosa in the descending colon of unclear significance Scattered diverticulosis PLAN: Await biopsies Advance diet Monitor labs and monitor for bleeding If all is stable tomorrow patient may be discharged from a GI standpoint follow- up with GI as an outpatient Anesthesia: [facility] Surgeon: Melchor Echevarria Condition: stable Disposition: floor
[2018-02-27 20:07] LABS: Hematocrit 39.8 % (35.0-46.0); Hemoglobin 13.2 gm/dL (11.6-15.3)
[2018-02-28] MEDS: Sod Chloride 0.9% Inj 1,000 ML IV.CONT SCH (02:35)
[2018-02-28 07:31] VITALS: RESP 16
[2018-02-28 09:34] LABS: Baso % (Auto) 0.4 % (0.0-2.0); Eos # (Auto) 0.2 th/mm3 (0.0-0.4); Hematocrit 35.3 % (35.0-46.0); Hemoglobin 11.9 gm/dL (11.6-15.3); Lymph # (Auto) 0.9 th/mm3 (1.0-4.8); Lymph % (Auto) 16.6 % (9.0-44.0); Mean Corpuscular HGB Conc 33.6 % (32.0-36.0); Mean Corpuscular Hemoglobin 30.3 pg (27.0-34.0); Mean Platelet Volume 7.3 fL (7.0-11.0); Mono # (Auto) 0.3 th/mm3 (0.0-0.9); Mono % (Auto) 6.5 % (0.0-8.0); Neut # (Auto) 3.9 th/mm3 (1.8-7.7); Neut % (Auto) 72.5 % (16.0-70.0); Platelet Count 129 th/mm3 (150-450); Red Blood Count 3.92 mil/mm3 (4.00-5.30); Red Cell Distribution Width 13.8 % (11.6-17.2); White Blood Count 5.3 th/mm3 (4.0-11.0)
[2018-02-28 09:58] LABS: Anion Gap 10 meq/L (5-15); Blood Urea Nitrogen 14 mg/dL (7-18); Carbon Dioxide 23.8 meq/L (21.0-32.0); Chloride 109 meq/L (98-107); Glomerular Filtration Rate Greater Than 89 mL/min (>89); Glucose,Random 97 mg/dL (74-106); Sodium 143 meq/L (136-145)
[2018-02-28 10:14] LABS: Potassium 2.9 meq/L (3.5-5.1)
--- NOTE | 2018-02-28 10:24 | P.DS ---
Date of admission: 02/26/18 14:10 Primary care physician: UNKNOWN Anticipated date of discharge: 02/28/18 Brief History from admission: patient is a 73 y/o female with history of hypertension and dyslipidemia, borderline diabetes, who presented to ER with rectal bleed. she says that she was at her usual state of health till yesterday when she started to have rectal bleed. she says that initially it was ' pinkish stool' however last night it ' turned black'. she reports mild lower abdominal pain last night which has resolved. she had some nausea as well. she doesn't report any fever but she was feeling cold. she denies any recent antibiotic use but she says that at times she takes advil for her back pain. she says that the last colonoscopy that she had was two-three years ago during which she had polypectomy. DS: Diagnosis - Discharge Diagnosis (1) Gastritis and duodenitis Status: Acute (2) GI bleed Status: Acute (3) Colitis Status: Acute (4) Hypokalemia Status: Acute DS: Medications - Discharge Medications Prescriptions: metronidazole [Flagyl] 500 mg PO Q8H 7 Days #21 tab DS: Summary Hospital Course: Patient Update on Day of Discharge: The patient reports no further abdominal pain. Denies nausea/vomiting. Tolerating oral intake. No BM since after bowel prep. Denies fevers/chills. She feels ready for discharge. Hospital Course: 73-year-old female with history of hypertension, hyperlipidemia, borderline diabetes, presents with 1 day history of rectal bleeding GI bleed: Acute. Hemoglobin remained stable at 14.1 12.4, 131.2, 11.9. No further bleeding episodes throughout admission. GI consulted. CT abd/pelvis showed colitis limited to the descending colon with scattered diverticula atypical for diverticulitis; differential includes inflammatory versus infectious etiologies; ischemic less likely with patent SMA/MELANIE/SMV. Started on antibiotics with IV Flagyl per GI. EGD 02/26/18 showed gastritis/duodenitis, no active bleeding. Colonoscopy 02/27 showed erythematous colonic mucosa. Multiple biopsies taken during EGD and colonoscopy. Diet advanced, patient tolerated well. No further bleeding. Cleared for discharge by GI on po Flagyl x7days. Hypertension/hyperlipidemia: Chronic. BP borderline low, held home antihypertensives. Resume statin. Stable. Hypokalemia: Potassium 3.1, suspect secondary to decreased oral intake and GI losses after bowel prep. Given multiple KCl replacements. - Time Spent with Patient Total time spent providing and/or coordinating discharge services: Less than 30 minutes - Quality: VTE Deep Vein Thrombosis/Pulmonary Embolism Present on Admission: No Exam Vital signs: Vital Signs 02/27/18 16:50 02/27/18 17:21 02/27/18 19:40 Temperature 97.8 F 97.6 F Pulse Rate 73 71 Respiratory Rate 18 18 Blood Pressure 99/58 L 113/69 Pulse Oximetry 96 97 96 02/27/18 19:49 02/28/18 00:00 02/28/18 04:00 Temperature 97.3 F L 98.0 F 98.2 F Pulse Rate 66 74 68 Respiratory Rate 16 16 15 Blood Pressure 105/59 L 105/60 109/60 Pulse Oximetry 94 L 93 L 94 L 02/28/18 07:28 Temperature 96.3 F L Pulse Rate 66 Respiratory Rate 16 Blood Pressure 111/60 Pulse Oximetry 94 L Intake & Output 02/27/18 02/28/18 02/28/18 18:59 06:59 18:59 Intake Total 2600 / 2600 950 / 950 Balance 2600 / 2600 950 / 950 Intake: IV 2200 / 2200 950 / 950 NS Inj 1,000 ML @ 100 mls/hr IV 2000 / 2000 750 / 750 .CONT .Q10H [facility] Rx#:[id number] Flagyl 500 MG Inj 100 ML @ 100 200 / 200 200 / 200 mls/hr IV.SIG Q8H [facility] Rx#: [id number] Anesthesia Amount 400 / 400 Other: # Voids 1 2 Date of Last Bowel Movement 02/26/18 # Bowel Movements 0 Narrative: GENERAL: Well-nourished, well-developed pleasant female patient in [facility]. SKIN: Warm and dry. No rash. HEENT: Normocephalic. Atraumatic. Mucous membranes pink and moist. CARDIOVASCULAR: Regular rate and rhythm. No murmur appreciated. RESPIRATORY: No accessory muscle use. Clear to auscultation. Breath sounds equal bilaterally. GASTROINTESTINAL: Abdomen soft, non-tender, nondistended. Normoactive bowel sounds x4. MUSCULOSKELETAL: No obvious deformities. Extremities without clubbing, cyanosis , or edema. NEUROLOGICAL: Awake and alert. No obvious cranial nerve deficits. Moving all extremities spontaneously. Normal speech. PSYCHIATRIC: Appropriate mood and affect; insight and judgment normal. Results Procedures completed during hospitalization: EGD 02/26/18 showed gastritis/duodenitis, no active bleeding. Colonoscopy 02/27 showed erythematous colonic mucosa. Multiple biopsies taken during EGD and colonoscopy. Pending studies at discharge: Pending at discharge 02/26/18 07:26 Surgical [PTH] Routine 02/27/18 07:34 Surgical [PTH] Routine Labs on day of discharge: Labs from last 24 hours 02/28/18 02/28/18 02/27/18 08:48 08:48 19:40 WBC 5.3 RBC 3.92 L Hgb 11.9 13.2 Hct 35.3 39.8 MCV 90.0 MCH 30.3 MCHC 33.6 RDW 13.8 Plt Count 129 L MPV 7.3 Neut % (Auto) 72.5 H Lymph % (Auto) 16.6 Bonner % (Auto) 6.5 Eos % (Auto) 4.0 Baso % (Auto) 0.4 Neut # (Auto) 3.9 Lymph # (Auto) 0.9 L Bonner # (Auto) 0.3 Eos # (Auto) 0.2 Baso # (Auto) 0.0 WBC Differential . Differential Comment Auto diff final Sodium 143 Potassium 2.9 L* Chloride 109 H Carbon Dioxide 23.8 Anion Gap 10 BUN 14 Creatinine 0.52 Estimated GFR Greater than 89 Random Glucose 97 Calcium 8.0 L - Impressions ITS Impressions Abdomen/Pelvis CT 02/26/18 11:04 CONCLUSION: 1. Colitis limited to the descending colon with sparing of the sigmoid and transverse colon. There are scattered colonic diverticula in the descending colon although the extent of abnormality is atypical for diverticulitis. Differential considerations include inflammatory and infectious etiologies. Ischemic etiology is felt to be much less likely as the SMA, MELANIE and central SMV are patent. 2. 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 3. Stable additional ancillary findings, as above. Discharge Plan - Discharge Disposition Patient Disposition: 01 Discharge Home - Discharge Condition Condition: Stable - Discharge Order Discharge Orders: Discharge Order (Routine); Ordered 02/28/18 Ordered By: Minerva Ng - Discharge Details Anticipated Discharge Date: 02/28/18 Discharge Comment: Discharge after repeat potassium resulted. Call with any Potassium < 3.5. - Physicians Team Primary Care Provider: UNKNOWN, Attending Provider: Milagros Zhou Other Providers: Melchor Echevarria MD ; Adilene Head
[2018-02-28] MEDS ORDERED: Magnesium Oxide 400 MG Tablet PO ONE (11:00)
--- NOTE | 2018-02-28 11:01 | P.PNGI ---
Subjective Interval history: Patient is sitting up in the bed states she feels so much better today. No obvious nausea vomiting or abdominal pain and tolerating regular diet <Crystal Yoo - Last Filed: 02/28/18 10:57> Physical Exam Vital signs: Vital Signs 02/27/18 16:50 02/27/18 17:21 02/27/18 19:40 Temperature 97.8 F 97.6 F Pulse Rate 73 71 Respiratory Rate 18 18 Blood Pressure 99/58 L 113/69 Pulse Oximetry 96 97 96 02/27/18 19:49 02/28/18 00:00 02/28/18 04:00 Temperature 97.3 F L 98.0 F 98.2 F Pulse Rate 66 74 68 Respiratory Rate 16 16 15 Blood Pressure 105/59 L 105/60 109/60 Pulse Oximetry 94 L 93 L 94 L 02/28/18 07:28 Temperature 96.3 F L Pulse Rate 66 Respiratory Rate 16 Blood Pressure 111/60 Pulse Oximetry 94 L Intake & Output 02/27/18 02/28/18 02/28/18 18:59 06:59 18:59 Intake Total 2600 / 2600 950 / 950 0 / 0 Balance 2600 / 2600 950 / 950 0 / 0 Intake: IV 2200 / 2200 950 / 950 0 / 0 NS Inj 1,000 ML @ 100 mls/hr IV 2000 / 2000 750 / 750 .CONT .Q10H [facility] Rx#:[id number] Flagyl 500 MG Inj 100 ML @ 100 200 / 200 200 / 200 0 / 0 mls/hr IV.SIG Q8H [facility] Rx#: [id number] Anesthesia Amount 400 / 400 Other: # Voids 1 2 Date of Last Bowel Movement 02/26/18 # Bowel Movements 0 - Constitutional no acute distress - Routine HEENT Exam Head: Present: normocephalic ENT: Present: mucous membranes moist - Routine Neck Exam Present: supple - Routine Respiratory Exam Present: accessory muscle use (Even, unlabored) - Routine Cardiovascular Exam Present: S1, S2 - Routine Abdominal Exam Present: soft, normoactive bowel sounds <Crystal Yoo - Last Filed: 02/28/18 10:57> Vital signs: Vital Signs 02/28/18 00:00 02/28/18 04:00 02/28/18 07:28 Temperature 98.0 F 98.2 F 96.3 F L Pulse Rate 74 68 66 Respiratory Rate 16 15 16 Blood Pressure 105/60 109/60 111/60 Pulse Oximetry 93 L 94 L 94 L 02/28/18 12:00 Temperature 98.8 F Pulse Rate 73 Respiratory Rate 16 Blood Pressure 123/64 Pulse Oximetry 95 Intake & Output 02/28/18 02/28/18 03/01/18 06:59 18:59 06:59 Intake Total 950 / 950 0 / 0 Balance 950 / 950 0 / 0 Intake: IV 950 / 950 0 / 0 NS Inj 1,000 ML @ 100 mls/hr IV 750 / 750 .CONT .Q10H [facility] Rx#:[id number] Flagyl 500 MG Inj 100 ML @ 100 200 / 200 0 / 0 mls/hr IV.SIG Q8H [facility] Rx#: [id number] Other: # Voids 2 Date of Last Bowel Movement 02/26/18 02/27/18 # Bowel Movements 0 <Melchor Echevarria - Last Filed: 02/28/18 22:29> Results - Labs CBC & Chem 7: 02/28/18 08:48 02/28/18 08:48 Laboratory Results - last 24 hr 02/27/18 02/28/18 02/28/18 19:40 08:48 08:48 WBC 5.3 RBC 3.92 L Hgb 13.2 11.9 Hct 39.8 35.3 MCV 90.0 MCH 30.3 MCHC 33.6 RDW 13.8 Plt Count 129 L MPV 7.3 Neut % (Auto) 72.5 H Lymph % (Auto) 16.6 Reagan % (Auto) 6.5 Eos % (Auto) 4.0 Baso % (Auto) 0.4 Neut # (Auto) 3.9 Lymph # (Auto) 0.9 L Reagan # (Auto) 0.3 Eos # (Auto) 0.2 Baso # (Auto) 0.0 WBC Differential . Differential Comment Auto diff final Sodium 143 Potassium 2.9 L* Chloride 109 H Carbon Dioxide 23.8 Anion Gap 10 BUN 14 Creatinine 0.52 Estimated GFR Greater than 89 Random Glucose 97 Calcium 8.0 L - Procedures 02/26/18EGD showed gastritis and duodenitis <Crystal Yoo - Last Filed: 02/28/18 10:57> - Labs CBC & Chem 7: 08/22/18 08:48 02/28/18 14:25 Laboratory Results - last 24 hr 02/28/1818 02/28/18 08:48 08:48 14:25 WBC 5.3 RBC 3.92 L Hgb 11.9 Hct 35.3 MCV 90.0 MCH 30.3 MCHC 33.6 RDW 13.8 Plt Count 129 L MPV 7.3 Neut % (Auto) 72.5 H Lymph % (Auto) 16.6 Reagan % (Auto) 6.5 Eos % (Auto) 4.0 Baso % (Auto) 0.4 Neut # (Auto) 3.9 Lymph # (Auto) 0.9 L Reagan # (Auto) 0.3 Eos # (Auto) 0.2 Baso # (Auto) 0.0 WBC Differential . Differential Comment Auto diff final Sodium 143 Potassium 2.9 L* 3.5 Chloride 109 H Carbon Dioxide 23.8 Anion Gap 10 BUN 14 Creatinine 0.52 Estimated GFR Greater than 89 Random Glucose 97 Calcium 8.0 L <Melchor Echevarria - Last Filed: 02/28/18 22:29> Assessment and Plan (1) Melena Status: Acute Code(s): K92.1 - Melena (2) GI bleed Status: Acute Code(s): K92.2 - Gastrointestinal hemorrhage, unspecified (3) Colitis Status: Acute Code(s): K52.9 - Noninfective gastroenteritis and colitis, unspecified - Plan 73-year-old slim female comes to the hospital on 02/26/2018 with symptoms of rectal bleeding initially pinkish tinged stools which have turned into dark black melena stools. Onset of symptoms approximately 2 days with some mid to lower abdominal pain and cramping. Also notes some nausea and admits to taking Advil on an occasional basis sometimes 3 times a day last dose taken was 3 days ago. Patient also notes history of polyps and colonoscopy 3 years ago. No previous EGD for comparison Patient notes left lower quadrant discomfort, no alleviating factors aggregating factors could be her Advil. Patient notes history of constipation but drinks diet herbal tea on a daily basis and states T is effective to control her constipation. Patient denies any nausea vomiting dyspepsia or dysphasia Colitis in the descending colon infectious versus inflammation, diverticula noted but no diverticulitis per CT scan. Will consider No family history of colon cancer current labs show hemoglobin 14.1, PT/INR 1.1 , bilirubin and LFTs normal. 02/28/2018 patient is sitting up in the bed feeling good denies any obvious nausea vomiting or abdominal pain current hemoglobin is 11.9 patient is status post colonoscopy which showed polyp and some abnormal mucosa in the descending colon. Biopsies were obtained patient also showed some diverticulosis and was advised to monitor popcorn nuts and seeds. It was noted in the initial CT scan the patient had some mild colitis in the descending colon and she was treated with Flagyl. Plan Okay from a GI standpoint if patient discharges and follows up with GI in the office in 2-4 weeks this was explained to her. Continue Flagyl p.o. for 7 more days. Patient was seen per myself and Dr. Echevarria, note was written on his behalf <Crystal Yoo - Last Filed: 02/28/18 10:57> (1) Melena Status: Acute Code(s): K92.1 - Melena (2) GI bleed Status: Acute Code(s): K92.2 - Gastrointestinal hemorrhage, unspecified (3) Colitis Status: Acute Code(s): K52.9 - Noninfective gastroenteritis and colitis, unspecified - Attending Attestation Patient seen and examined Agree with above Continue with current supportive care Monitor labs Follow-up with GI post discharge <Melchor Echevarria E - Last Filed: 02/28/18 22:29> <Crystal Yoo - Last Filed: 02/28/18 10:57> (2) GI bleed Qualifiers: GI bleed type/associated pathology: melena Qualified Code(s): K92.1 - Melena <Melchor Echevarria E - Last Filed: 02/28/18 22:29> (2) GI bleed Qualifiers: GI bleed type/associated pathology: melena Qualified Code(s): K92.1 - Melena
[2018-02-28 12:31] VITALS: BP 123/64; PULSE 73; TEMP 98.8; O2SAT 95
== END 2018-02-28 15:52 | disposition home or self-care (01) ==
LOC: NEDA 10:09 → NEPC 10:09 → NEPFCDU 10:09 → NEDA 14:40 → NEPFCDU 15:30
PROVIDERS: ADMIT Internal Medicine; ATTEND Internal Medicine
PROC: PANENDO (2018-02-26 16:03)
PROC: COLONOS (2018-02-27 15:56)